=== PATIENT | female | born 1960 | race Caucasian/White ===

== ENCOUNTER 2024-08-31 06:26 | Emergency (ER) | payer OTHER ==
[2024-08-31 06:52] VITALS: TEMP 98.4; BMI 30.9
[2024-08-31 07:25] VITALS: BP 118/83; PULSE 66; RESP 13
== END 2024-08-31 08:40 | disposition left against medical advice (07) ==
LOC: JER 06:26
DX: I10 Essential (primary) hypertension (principal); R53.1 Weakness; M54.9 Dorsalgia, unspecified; G89.29 Other chronic pain; R20.2 Paresthesia of skin
CPT/HCPCS: 82962; 99283-25